=== PATIENT | male | born 1970 | race Caucasian/White ===

== ENCOUNTER 2016-09-08 10:07 | Inpatient (IN) | payer SELFPAY ==
--- NOTE | 2016-09-08 10:21 | EDPHY ---
H & P Time Seen by Provider: 09/08/16 10:17 HPI/ROS: CHIEF COMPLAINT: Chest tightness HISTORY OF PRESENT ILLNESS: This patient is a 26 year old male with history of familial hypercholesteremia who presents complaining of intermittent chest tightness beginning five days prior to arrival and worsening over time. His symptoms first presented as a pressure sensation beneath his armpits while walking to work. He reports episodic substernal chest pain since that time. Today, he awoke with substernal chest pressure mild in severity that has been waxing and waning since presentation. The pain is 4/10 now. He also complains of associated diaphoresis. Denies nausea, vomiting, lightheadedness, or dyspnea. Family history of coronary artery disease on father's side. Patient is an everyday smoker. REVIEW OF SYSTEMS: Constitutional: +diaphoresis, no fever, no chills Eyes: No visual changes ENT: No sore throat Respiratory: No cough, no shortness of breath Cardiac: +chest pain Gastrointestinal: No nausea, no vomiting, no abdominal pain Genitourinary: No hematuria, no dysuria Musculoskeletal: No leg pain or swelling Skin: No rash Neurological: No headache, no numbness, no weakness Psychiatric: anxiety Past Medical/Surgical History: Familial hypercholesteremia (unmedicated). No history of diabetes. Social History: Drinks alcohol daily. Smokes daily. 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 Smoking Status: Current every day smoker Physical Exam: General Appearance: Alert, no distress Eyes: Pupils equal and round, no conjunctival pallor or injection ENT, Mouth: Mucous membranes moist Neck: Normal inspection Respiratory: Lungs are clear to auscultation Cardiovascular: Tachycardic, no murmur Gastrointestinal: Abdomen is soft and non- tender Neurological: A&O, nonfocal, normal gait Skin: Warm and dry, no rash Extremities: Nontender, no pedal edema Psychiatric: Anxious affect Constitutional: Initial Vital Signs Temperature (C) 36.5 C 09/08/16 10:09 Heart Rate 81 09/08/16 10:09 Respiratory Rate 16 09/08/16 10:09 Blood Pressure 190/124 H 09/08/16 10:09 O2 Sat (%) 98 09/08/16 10:09 O2 Delivery Mode Nasal Cannula O2 (L/minute) 2 Allergies/Adverse Reactions: No Known Allergies Allergy (Unverified 12/09/12 23:43) Home Medications: Medication Instructions Recorded NK [No Known Home Meds] 09/08/16 Medical Decision Making - Diagnostics EKG Interpretation: The 12 lead EKG was interpreted by myself reveals: normal sinus rhythm, rate 72. ST segment elevation in V1-V5 consistent with acute anterior IA. Imaging: Imaging Impressions Chest X-Ray 09/08/16 10:22 Impression: 1. No active cardiopulmonary disease seen. 2. Moderate dextroscoliosis mid to lower thoracic spine. ED Course/Re-evaluation: 1018: EKG shows acute anterior STEMI. Cardiac alert called. 1019: Patient transitioned to trauma bay and placed on train station agent. IV established. Patient placed on O2 via nasal cannula. 1020: Dr. Galloway, interventional cardiology, at bedside. 1023: 324mg PO Aspirin administered. 1024: Chest x-ray obtained and reviewed by myself at bedside: normal mediastinum and no acute disease. 1025: Cath Team at bedside. 1026: 0.5mg IV Ativan administered for anxiety. Pt felt better after Ativan. 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 This pt remained stable throughout his brief ED stay. Pt's friend was informed of dx and course of action. This pt utilized 35 minutes of critical care time by me exclusive of unbundled procedures. Organ at risk: heart Differential Diagnosis: Differential diagnosis includes though it is not limited to pneumonia, pneumothorax, pulmonary embolism, aortic dissection, pericarditis, acute coronary syndrome. - Data Points Laboratory Results: Laboratory Results 09/08/16 10:23 09/08/16 10:23 09/08/16 09/08/16 10:23 10:23 WBC 8.07 10^3/uL 10^3/uL (3.80-9.50) RBC 5.46 10^6/uL 10^6/uL (4.40-6.38) Hgb 17.6 g/dL H g/dL (13.7-17.5) Hct 50.1 % % (40.0-51.0) MCV 91.8 fL fL (81.5-99.8) MCH 32.2 pg pg (27.9-34.1) MCHC 35.1 g/dL g/dL (32.4-36.7) RDW 12.5 % % (11.5-15.2) Plt Count 180 10^3/uL 10^3/uL (150-400) MPV 10.0 fL fL (8.7-11.7) Neut % (Auto) 73.4 % % (39.3-74.2) Lymph % (Auto) 15.7 % % (15.0-45.0) [place] % (Auto) 9.7 % % (4.5-13.0) Eos % (Auto) 0.4 % L % (0.6-7.6) Baso % (Auto) 0.6 % % (0.3-1.7) Nucleat RBC Rel Count 0.0 % % (0.0-0.2) Absolute Neuts (auto) 5.92 10^3/uL 10^3/uL (1.70-6.50) Absolute Lymphs (auto) 1.27 10^3/uL 10^3/uL (1.00-3.00) Absolute Monos (auto) 0.78 10^3/uL 10^3/uL (0.30-0.80) Absolute Eos (auto) 0.03 10^3/uL 10^3/uL (0.03-0.40) Absolute Basos (auto) 0.05 10^3/uL 10^3/uL (0.02-0.10) Absolute Nucleated RBC 0.00 10^3/uL 10^3/uL (0-0.01) Immature Gran % 0.2 % % (0.0-1.1) Immature Gran # 0.02 10^3/uL 10^3/uL (0.00-0.10) Sodium 135 mEq/L mEq/L (134-144) Potassium 4.3 mEq/L mEq/L (3.5-5.2) Chloride 98 mEq/L mEq/L (97-110) Carbon Dioxide 22 mEq/l mEq/l (22-31) Anion Gap 15 mEq/L mEq/L (8-16) BUN 17 mg/dL mg/dL (7-23) Creatinine 0.8 mg/dL mg/dL (0.7-1.3) Estimated GFR > 60 Glucose 123 mg/dL H mg/dL (70-100) Calcium 9.9 mg/dL mg/dL (8.5-10.4) Troponin I 0.446 ng/mL H ng/mL (0-0.034) NT-Pro-B Natriuret Pep 127 pg/mL H pg/mL (0-125) Medications Given: Discontinued Medications Aspirin (Aspirin) 324 mg PO EDNOW ONE Stop: 09/08/16 10:45 Last Admin: 09/08/16 10:25 Dose: 324 mg Aspirin Buffered (Aspirin Ec) 325 mg PO ONCE ONE Stop: 09/08/16 12:34 Last Admin: 09/08/16 12:57 Dose: Not Given Lorazepam (Ativan Injection) 1 mg IVP EDNOW ONE Stop: 09/08/16 10:45 Last Admin: 09/08/16 10:28 Dose: 1 mg Ticagrelor (Brilinta) 180 mg PO ONCE ONE Stop: 09/08/16 12:34 Last Admin: 09/08/16 12:57 Dose: Not Given Departure - Departure Disposition: To OP Cath/Surgery Clinical Impression: Acute coronary syndrome Condition: Critical
[2016-09-08] MEDS ORDERED: ASPIRIN 81 MG CHEWABLE TAB ONE (10:22)
[2016-09-08] MEDS ORDERED: fentaNYL 100 MCG/2 ML INJ ONE ×3 (10:23→10:53)
[2016-09-08] MEDS ORDERED: LIDOCAINE 1% 30 ML SDV ONE (10:23)
[2016-09-08] MEDS ORDERED: IOPAMIDOL (ISOVUE 370) 100 ML BTL IV ONE ×3 (10:24→11:33)
[2016-09-08] MEDS ORDERED: MIDAZOLAM 2 MG/2 ML VIAL ONE ×3 (10:24→10:53)
[2016-09-08] MEDS ORDERED: LORazepam 2 MG/ML INJ ONE (10:26)
--- NOTE | 2016-09-08 10:26 | CPEKG ---
Heart Rate: 72 RR Interval: 833 P-R Interval: 136 QRSD Interval: 82 QT Interval: 376 QTC Interval: 412 P [place]: 76 QRS [place]: 47 T Wave [place]: 55 EKG Severity - ABNORMAL ECG - EKG Impression: SINUS RHYTHM EKG Impression: PROBABLE LEFT ATRIAL ABNORMALITY EKG Impression: ANTERIOR INJURY, EARLY ACUTE INFARCT Electronically Signed By: Yeny Kapadia 08-Sep-2016 10:43:19
[2016-09-08] MEDS ORDERED: BIVALIRUDIN 250 MG/5 ML VIAL IV ONE ×2 (10:28→11:33)
[2016-09-08] MEDS ORDERED: NITROGLYCERIN 1,500 MCG/15 ML VIAL MISC ONE ×2 (10:29→10:44)
[2016-09-08] MEDS ORDERED: ONDANSETRON 4 MG/2 ML VIAL ONE (10:33)
[2016-09-08 10:37] LABS: % IMMATURE GRANULYOCYTES 0.2 % (0.0-1.1); ABSOLUTE IMMATURE GRANULOCYTES 0.02 10^3/uL (0.00-0.10); ADD DIFF? NO; ADD MORPH? NO; ADD SCAN? NO; ATYPICAL LYMPHOCYTE FLAG 0 (0-99); FRAGMENT RBC FLAG 0 (0-99); HEMATOCRIT 50.1 % (40.0-51.0); HEMOGLOBIN 17.6 g/dL (13.7-17.5); LEFT SHIFT FLG 0 (0-99); LIPEMIA HEMOLYSIS FLAG 90 (0-99); MEAN CELL HEMOGLOBIN 32.2 pg (27.9-34.1); MEAN CELL HEMOGLOBIN CONCENTR. 35.1 g/dL (32.4-36.7); MEAN CELL VOLUME 91.8 fL (81.5-99.8); PLATELET CLUMPS FLAG 0 (0-99); PLATELET COUNT 180 10^3/uL (150-400); RED BLOOD CELL COUNT 5.46 10^6/uL (4.40-6.38); RED CELL DISTRIBUTION WIDTH 12.5 % (11.5-15.2)
[2016-09-08] MEDS ORDERED: LORazepam 2 MG/ML INJ IVP ONE (10:44)
[2016-09-08] MEDS ORDERED: ASPIRIN 81 MG CHEWABLE TAB PO ONE (10:44)
[2016-09-08 10:52] LABS: CALCIUM 9.9 mg/dL (8.5-10.4); CARBON DIOXIDE 22 mEq/l (22-31); CHLORIDE 98 mEq/L (97-110); CREATININE 0.8 mg/dL (0.7-1.3); GLOMERULAR FILTRATION RATE > 60; GLUCOSE 123 mg/dL (70-100); SODIUM 135 mEq/L (134-144)
[2016-09-08 11:02] LABS: ANION GAP 15 mEq/L (8-16); POTASSIUM 4.3 mEq/L (3.5-5.2)
[2016-09-08 11:04] LABS: TROPONIN I 0.446 ng/mL (0-0.034)
[2016-09-08] MEDS ORDERED: TICAGRELOR 90 MG TAB PO ONE ×2 (12:02→12:33)
[2016-09-08] MEDS ORDERED: LORazepam 2 MG/ML INJ IVP PRN (12:33)
[2016-09-08] MEDS ORDERED: NITROGLYCERIN 0.4 MG BTL SL PRN (12:33)
[2016-09-08] MEDS ORDERED: HYDROCODONE/APAP 5/325 TAB PO PRN (12:33)
[2016-09-08] MEDS ORDERED: ATROPINE SULFATE 1 MG/10 ML SYR IVP PRN (12:33)
[2016-09-08] MEDS ORDERED: TEMAZEPAM 15 MG CAP PO PRN (12:33)
[2016-09-08] MEDS ORDERED: ONDANSETRON 4 MG/2 ML VIAL IVP PRN (12:33)
[2016-09-08] MEDS ORDERED: OXYCODONE/APAP 5/325 TAB PO PRN (12:33)
[2016-09-08] MEDS ORDERED: ASPIRIN EC 325 MG TAB PO ONE (12:33)
--- NOTE | 2016-09-08 12:43 | CPEKG ---
Heart Rate: 92 RR Interval: 652 QRSD Interval: 158 QT Interval: 436 QTC Interval: 540 QRS [place]: 129 T Wave [place]: 15 EKG Severity - ABNORMAL ECG - EKG Impression: ACCELERATED JUNCTIONAL RHYTHM EKG Impression: IVCD, CONSIDER ATYPICAL RBBB EKG Impression: EXTENSIVE ANTERIOR INFARCT, ACUTE EKG Impression: JUNCTIONAL RHYTHM IS NEW IN COMPARISON TO PRIOR Electronically Signed By: Tj Larry 08-Sep-2016 12:54:32
--- NOTE | 2016-09-08 13:13 | GCON ---
[f rep st] CONSULTATION DATE OF CONSULTATION: 09/08/2016 REFERRING PHYSICIAN: Yeny Kapadia MD CHIEF COMPLAINT: We have been asked by Dr. Kapadia to evaluate the patient with an acute anterior ST-s egment elevation myocardial infarction. HISTORY OF PRESENT ILLNESS: The patient is a 46-year-old gentleman with risk factors including fami lial hyperlipidemia and tobacco use, who presents with a chief complaint of chest pain. The patient was in his usual state of health until 4-5 days prior to admission, when he began to experience ceferino st pain. The chest pain was described as a pressure in the center of his chest extending into his a xilla. The chest discomfort was associated with diaphoresis but not nausea and vomiting. Initially , the chest discomfort was intermittent in nature and not severe. However, on the day of admission, patient woke up having severe chest discomfort that was not resolving. He presented to the emergen cy department for further evaluation. In the emergency department, he had an EKG performed demonstr ating diffuse anterior ST-segment elevation, as well as an elevated troponin of 0.446. We were cons ulted to help in the further management of this patient. The patient denies a previous history of coronary artery disease. He does have risk factors as note d above. PAST MEDICAL HISTORY: 1. Familial hyperlipidemia. 2. Daily alcohol use. 3. Daily tobacco use. MEDICATIONS: None. ALLERGIES: No known drug allergies. 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 He smokes daily an d drinks daily. FAMILY HISTORY: Notable for familial hyperlipidemia. REVIEW OF SYSTEMS: A full 10-point review of systems was not obtained given acute nature of illness . PHYSICAL EXAMINATION: GENERAL: Patient is resting in bed. He is in moderate distress, continuing to have symptoms of chest discomfort. VITALS: Afebrile. Pulse 81, blood pressure 190/124, respira tory rate 16, SaO2 98% on 2 L nasal cannula. HEENT: Normocephalic, atraumatic. Extraocular muscle s intact. NECK: No JVD. No bruits. LUNGS: Clear to auscultation bilaterally. CARDIOVASCULAR: Regular rate and rhythm, S1, S2. Positive S4. No murmurs auscultated. ABDOMEN: Soft, nontender. Normal active bowel sounds. No hepatosplenomegaly. Could not palpate aorta. EXTREMITIES: No clu bbing, cyanosis, or edema. There are 2+ posterior tibial pulses bilaterally. Dorsalis pedis pulses were reduced bilaterally. NEUROLOGIC: Patient awake, alert, and oriented x3. SKIN: No evidence of rashes. LABORATORY: White blood cell count is 8.07, hemoglobin 17.6, hematocrit 50.1, platelet count 180. Sodium 135, potassium 4.3, chloride 98, CO2 22, BUN 17, creatinine 0.8. IMAGING: EKG demonstrates sinus rhythm with anterior ST-segment elevation in leads V1 through V 5. ASSESSMENT AND PLAN: The patient is a 46-year-old gentleman with multiple cardiac risk factors who presents with an acute anterior ST-segment elevation myocardial infarction. He is continuing to hav e ongoing symptoms of chest pain at this time. Reviewed risks and benefits of cardiac catheterizati on with the patient for risk stratification and management. We will arrange to have this performed emergently. /[id number]/MODL
--- NOTE | 2016-09-08 15:13 | ECHO ---
[id number] + + [address] : : [place] [address] : : [phone] + + Adult Echocardiographic Report + -----+ :Name: ALINE MEDLEY MStudy Date: 09/08/2016 01:29 PM : : Hospital Admission Number: [id number] Location : 255: :: 1970 Gender: Male Height: 69.5 in : :Age: 46 yrs Race: WH Weight: 159 lb : :Reason For Study: Eval LV Fx : : BSA: 1.9 meters2 : :History: Post Cardiac Alert, Stents : + -----+ MMode/2D Measurements \T\ Calculations IVSd: 1.0 cm LVIDd: 4.6 cm FS: 21.9 % Ao root diam: LVPWd: 1.1 cm LVIDs: 3.6 cm EDV(Teich): 3.1 cm 95.9 ml ACS: 1.7 cm ESV(Teich): 53.4 ml EF(Teich): 44.3 % LVLd ap4: 7.4 cm SV(MOD-sp4): EDV(MOD-sp4): 46.0 ml 112.0 ml LVLs ap4: 7.1 cm ESV(MOD-sp4): 66.0 ml EF(MOD-sp4): 41.1 % Normal Measurement Values: + + :LVIDd (3.5-5.7cm) IVSd (0.6-1.1cm) LVPWd (0.6-1.1cm) Aortic Root (2.0-3.7cm)Left Atrium (1.5-4.0cm): :LV Vol(d) (76-115ml) LV Vol(s) (29-48ml) Ejec Fraction (50-65%)PV [place] (0.6- 1.2m/s) TV [place] (0.4-1.0m/s) : :MV E [place] (0.8-1.0m/s)MV A [place] (0.3-1.0m/s)LVOT [place] (0.7-1.2m/s) Asc Ao [place] ( 0.9-1.8m/s) : + + Doppler Measurements \T\ Calculations MV E max [place]: 48.4 cm/sec PA V2 max: 115.4 cm/sec MV A max [place]: 65.6 cm/sec PA max P.3 mmHg MV E/A: 0.74 Left Ventricle The left ventricle is normal in size. There is normal left ventricular wall thickness. Ejection Fraction = 40-45%. There is anterior and anteroseptal hypokinesis. Right Ventricle The right ventricle is normal in size and function. Atria The left atrial size is normal. Right atrial size is normal. Mitral Valve The mitral valve is normal in structure and function. There is no evidence of mitral valve prolapse. There is no mitral valve stenosis. There is no mitral regurgitation noted. Tricuspid Valve The tricuspid valve is normal in structure and function. No tricuspid regurgitation. Aortic Valve The aortic valve is normal in structure and function. There is no aortic stenosis. There is no aortic insufficiency. Pulmonic Valve The pulmonic valve is normal in structure and function. There is no pulmonic valvular regurgitation. Great Vessels The aortic root is normal size. Pericardium/Pleural There is no pericardial effusion. Conclusion A complete two-dimensional transthoracic echocardiogram was performed (2D, M-mode, Doppler and color flow Doppler). Ejection Fraction = 40-45%. There is anterior and anteroseptal hypokinesis The right ventricle is normal in size and function. The mitral valve is normal in structure and function. The tricuspid valve is normal in structure and function. The aortic valve is normal in structure and function. The aortic root is normal size. There is no pericardial effusion. No prior echo Final Reading Physician: Dr Ashley Eugene electronically signed on 09/08/2016 03:12 PM Ordering Physician: Tj Galloway Performed By: Mendez Abbott, JEANINECS
[2016-09-08] MEDS: CARVEDILOL 3.125 MG TAB PO SCH (16:07)
--- NOTE | 2016-09-08 16:15 | CPIP ---
[f rep st] INVASIVE CARDIAC PROCEDURE DATE OF PROCEDURE: 09/08/2016 PROCEDURES: 1. Coronary angiography. 2. Stenting of left anterior descending coronary artery and diagonal artery via culotte technique. INDICATION: Acute anterior ST-segment elevation myocardial infarction. ACCESS: Patient was prepped and draped in sterile fashion. 1% lidocaine was used to anesthetize the right inguinal region. A 6-Lebanese introducer sheath was placed in the right common femoral artery v ia modified Seldinger technique. The 6-Lebanese introducer sheath was later exchanged for 7-Lebanese int roducer sheath via exchange wire technique. CORONARY ANGIOGRAPHY: A 6-Lebanese JL4 was advanced to the left main coronary artery and images obtai sreedhar. The left main coronary artery trifurcated into an LAD, ramus, and circumflex coronary arteries. The left main coronary artery appeared normal. The left anterior descending coronary artery had a p roximal 99% stenosis involving the takeoff of the first diagonal artery with ALY 1 flow. The first diagonal artery had a proximal 80% stenosis with ALY 3 flow. The ramus coronary artery was a modera te to large size vessel. The ramus coronary artery appeared normal. The circumflex coronary artery w as nondominant. The circumflex coronary artery gave rise to 2 OM branches. The circumflex coronary a rtery had mild diffuse disease throughout. There was no stenosis greater than 10%. 6-Lebanese JR4 was advanced to the right coronary artery and images obtained. The right coronary artery is dominant. Th e right coronary artery had a distal 20% stenosis present. LEFT VENTRICULOGRAPHY: Left ventriculography was not performed in an effort to spare contrast. PERCUTANEOUS CORONARY INTERVENTION OF THE LEFT ANTERIOR DESCENDING CORONARY ARTERY: A 7-Lebanese EBU 3.5 was advanced to the left main coronary artery and images obtained. Angiography confirmed the pre sence of high-grade disease involving the proximal left anterior descending coronary artery. A Luge wire was placed in the distal vessel and position verified by angiography. A 2.5 x 15 Emerge balloon was used to pre-dilate the lesion. Followup angiography demonstrated a significant residual stenosi s; however, there was confucianist of ALY 3 flow. A 3.0 x 24 Synergy drug-eluting stent was then qasim dao across the lesion and deployed. Followup angiography demonstrated ALY 3 flow, no residual steno sis. The Luge wire was withdrawn from the left anterior descending coronary artery and placed in the diag onal artery. An attempt was made at passing a 1.5 x 15 Emerge balloon into the diagonal artery. This was unsuccessful. A [place] wire was then placed in the left anterior descending coronary artery and a 3.5 x 15 noncompliant balloon was used to post-dilate the proximal portion of the stent. Followup angiography demonstrated ALY 3 flow, no residual stenosis. An attempt was made at placing a 1.5 x 12 Emerge balloon into the first diagonal artery. This was unsuccessful. A 1.25 x 6 Sprinter balloon was then placed in the first diagonal artery and deployed. This was followed by a 1.5 x 10 Sprinter balloon which was also deployed. Followup angiography demonstrated significant residual stenosis wi th ALY 3 flow in the diagonal artery. A 2.0 x 20 Emerge balloon was then placed in the left anterio r descending coronary artery and into the proximal portion of the diagonal artery and deployed. Foll owup angiography demonstrated significant residual stenosis of the diagonal artery with ALY 3 flow. It was decided to switch to a bifurcation stenting technique. A 2.5 x 20 Synergy drug-eluting stent was placed in the proximal portion of the left anterior descending coronary artery and extended int o the first diagonal artery and deployed. Followup angiography demonstrated ALY 3 flow, no residual stenosis. The proximal portion of the stent that was extending from the left anterior descending co ronary artery into the diagonal artery was post dilated with a 3.5 x 8 Emerge balloon. Here again, f ollowup angiography demonstrated ALY 3 flow, no residual stenosis. The Luge wire was withdrawn from the diagonal artery and advanced into the left anterior descending coronary artery. It would not successfully cross into the left anterior descending coronary artery. It was, therefore, exchanged for a [place] wire. The [place] wire was placed in the left anterior desc ending coronary artery and position verified by angiography. A 1.5 x 15 Emerge balloon was used to o pen the side struts of the previously placed stent. A Luge wire was then placed in the diagonal tonya ry in preparation for kissing balloon technique. A 2.5 x 15 Emerge balloon was placed in the left an terior descending coronary artery into the diagonal artery. A 3.5 x 20 Emerge balloon was placed in the left anterior descending coronary artery. The balloons were simultaneously inflated via kissing technique. Followup angiography demonstrated ALY 3 flow, no residual stenosis. COMPLICATIONS: None. CONCLUSIONS: 1. Single-vessel coronary artery disease involving the left anterior descending coronary artery. 2. Status post culotte stenting technique of the left anterior descending coronary artery and first diagonal artery. /[id number]/MODL
[2016-09-08] MEDS ORDERED: LORazepam 1 MG TAB PO PRN (16:38)
[2016-09-08 19:26] LABS: CK-MB INTERPRETATION POSITIVE (NEGATIVE)
[2016-09-08] MEDS ORDERED: ACETAMINOPHEN 325 MG TAB PO PRN (22:00)
[2016-09-08] MEDS: TICAGRELOR 90 MG TAB PO SCH (23:23)
[2016-09-09 05:32] LABS: % IMMATURE GRANULYOCYTES 0.3 % (0.0-1.1); ABSOLUTE IMMATURE GRANULOCYTES 0.02 10^3/uL (0.00-0.10); ADD DIFF? NO; ADD MORPH? NO; ADD SCAN? NO; ATYPICAL LYMPHOCYTE FLAG 10 (0-99); FRAGMENT RBC FLAG 0 (0-99); HEMOGLOBIN 17.1 g/dL (13.7-17.5); LEFT SHIFT FLG 0 (0-99); LIPEMIA HEMOLYSIS FLAG 90 (0-99); MEAN CELL HEMOGLOBIN 32.8 pg (27.9-34.1); MEAN CELL HEMOGLOBIN CONCENTR. 35.6 g/dL (32.4-36.7); MEAN PLATELET VOLUME 10.4 fL (8.7-11.7); PLATELET CLUMPS FLAG 0 (0-99); PLATELET COUNT 155 10^3/uL (150-400); RED BLOOD CELL COUNT 5.22 10^6/uL (4.40-6.38); RED CELL DISTRIBUTION WIDTH 12.2 % (11.5-15.2)
[2016-09-09 05:48] LABS: ALANINE AMINOTRANSFERASE 92 IU/L (21-72); ALBUMIN 3.7 g/dL (3.5-5.0); ALKALINE PHOSPHATASE 71 IU/L (38-126); ANION GAP 6 mEq/L (8-16); ASPARTATE AMINOTRANSFERASE 366 IU/L (17-59); BILIRUBIN-CONJUGATED 0.4 mg/dL (0.0-0.5); BILIRUBIN-UNCONJUGATED 0.6 mg/dL (0.0-1.1); CALCIUM 8.5 mg/dL (8.5-10.4); CARBON DIOXIDE 23 mEq/l (22-31); CHLORIDE 108 mEq/L (97-110); CHOLESTEROL 244 mg/dL (140-200); CHOLESTEROL/HDL RATIO 3.87 RATIO (1.00-4.97); CREATININE 0.6 mg/dL (0.7-1.3); GLOMERULAR FILTRATION RATE > 60; GLUCOSE 101 mg/dL (70-100); HIGH DENSITY LIPOPROTEIN 63 mg/dL (40-65); LDL/HDL RATIO 2.62 RATIO (1.00-3.64); LOW DENSITY LIPOPROTEIN 165 mg/dL (70-100); NON-HIGH DENSITY LIPOPROTEIN 181 mg/dL (90-129); POTASSIUM 4.3 mEq/L (3.5-5.2); SODIUM 137 mEq/L (134-144); TOTAL PROTEIN 6.5 g/dL (6.3-8.2); TRIGLYCERIDE 82 mg/dL (40-150); VERY LOW DENSITY LIPOPROTEINS 16 mg/dL (8-25)
[2016-09-09 06:16] LABS: CK-MB INTERPRETATION POSITIVE (NEGATIVE)
[2016-09-09] MEDS: CARVEDILOL 3.125 MG TAB PO SCH ×2 (08:13→17:58)
[2016-09-09] MEDS: TICAGRELOR 90 MG TAB PO SCH ×2 (08:14→19:51)
[2016-09-09] MEDS: ASPIRIN EC 81 MG TAB PO SCH (08:14)
[2016-09-09] MEDS: ATORVASTATIN CALCIUM 40 MG TAB PO SCH (08:14)
--- NOTE | 2016-09-09 08:51 | CPEKG ---
Heart Rate: 70 RR Interval: 857 P-R Interval: 136 QRSD Interval: 70 QT Interval: 436 QTC Interval: 471 P [place]: 76 QRS [place]: 67 T Wave [place]: 76 EKG Severity - ABNORMAL ECG - EKG Impression: SINUS RHYTHM EKG Impression: MULTIPLE VENTRICULAR PREMATURE COMPLEXES EKG Impression: ANTERIOR INFARCT, RECENT EKG Impression: SINUS RHYTHM HAS REPLACED JUNCTIONAL RHYTHM NOTED ON PRIOR ECG Electronically Signed By: Tj Larry 09-Sep-2016 12:24:17
[2016-09-09] MEDS: LISINOPRIL 5 MG TAB PO SCH (15:06)
--- NOTE | 2016-09-09 18:10 | SOAPPROG ---
JENNIFER Progress Note Assessment/Plan: 1. Anterior STEMI - Pt presented with an anterior STEMI. He was treated with PCI of LAD and diagonal arteries. Peak CPK 2937. LVEF = 40 to 45%. No recurrent angina, CHF, or significant arrhythmias on telemetry monitoring. --> Continue asa, brilinta, coreg, and lipitor. --> Will add lisinopril today 2. Hyperlipidemia - LDL is 165 c/w his history of familial hyperlipidemia. --> lipitor 40 mg started on 09/08 --> Repeat FLP and LFTs in 3 months. --> Consider PCSK9 3. HTN - BP is well controlled. Will start lisinopril given reduced LVEF. Subjective: No chest pain No orthopnea or PND OK with medications limited ambulation No groin pain. Objective: Vital Signs Temp Pulse Resp BP Pulse Ox 36.5 C 73 18 122/82 H 98 09/09/16 08:00 09/09/16 17:58 09/09/16 16:00 09/09/16 17:58 09/09/16 16:00 Laboratory Results 09/09/16 05:20 09/09/16 05:20 09/08/16 09/09/16 09/10/16 05:59 05:59 05:59 Intake Total 1390 1500 Output Total 2400 1500 Balance -1010 0 Physical Exam - Physical Exam General Appearance: alert, no apparent distress Respiratory: lungs clear Cardiac/Chest: regular rate, rhythm Abdomen: normal bowel sounds, non-tender, soft Skin: normal color Extremities: other (No hematoma or echymosis.), No pedal edema ICD10 Worksheet Patient Problems: Problems Problem Status Onset Acute coronary syndrome Acute
[2016-09-10 08:31] VITALS: BP 127/81; PULSE 73; RESP 18; TEMP 98.1; O2SAT 98
[2016-09-10] MEDS: CARVEDILOL 3.125 MG TAB PO SCH (09:01)
[2016-09-10] MEDS: ATORVASTATIN CALCIUM 40 MG TAB PO SCH (09:40)
[2016-09-10] MEDS: ASPIRIN EC 81 MG TAB PO SCH (09:40)
[2016-09-10] MEDS: TICAGRELOR 90 MG TAB PO SCH (09:41)
[2016-09-10] MEDS: LISINOPRIL 5 MG TAB PO SCH (09:41)
--- NOTE | 2016-09-10 10:13 | ECHO ---
[id number] [id number] + + [address] : : [place] [address] : : [phone] + + Adult Echocardiographic Report + -----+ :Name: ALINE MEDLEY MStudy Date: 09/10/2016 07:47 AM : : Hospital Admission Number: [id number] Location : 255: :: 1970 Gender: Male Height: 70 in : :Age: 46 yrs Race: WH Weight: 160 lb : :Reason For Study: Eval LVEF : : BSA: 1.9 meters2 : + -----+ MMode/2D Measurements \T\ Calculations LVLd ap4: 7.7 cm SV(MOD-sp4): 29.0 ml EDV(MOD-sp4): 72.0 ml LVLs ap4: 7.0 cm ESV(MOD-sp4): 43.0 ml EF(MOD-sp4): 40.3 % Normal Measurement Values: + + :LVIDd (3.5-5.7cm) IVSd (0.6-1.1cm) LVPWd (0.6-1.1cm) Aortic Root (2.0-3.7cm)Left Atrium (1.5-4.0cm): :LV Vol(d) (76-115ml) LV Vol(s) (29-48ml) Ejec Fraction (50-65%)PV [place] (0.6- 1.2m/s) TV [place] (0.4-1.0m/s) : :MV E [place] (0.8-1.0m/s)MV A [place] (0.3-1.0m/s)LVOT [place] (0.7-1.2m/s) Asc Ao [place] ( 0.9-1.8m/s) : + + Left Ventricle Ejection Fraction = 40-45%. Mild to distal anterior and anteroseptal hypokinesis. Conclusion Limited 2-D echo. Slight improvement in anterior and anteroseptal wall function compared with 09/08/2016. Ejection Fraction = 40-45%. Mild to distal anterior and anteroseptal hypokinesis Final Reading Physician: Dr Ashley Eugene electronically signed on 09/10/2016 10:12 AM Ordering Physician: Tj Galloway Performed By: Blanca Cartwright RDCS
--- NOTE | 2016-09-10 11:40 | GDS ---
[f rep st] DISCHARGE SUMMARY DISCHARGE DIAGNOSES: 1. Anterior ST-segment elevation myocardial infarction. The patient presented with an acute anteri or ST-segment elevation myocardial infarction. He was treated with percutaneous coronary interventi on of his left anterior descending coronary artery and 1st diagonal artery using Synergy drug-elutin g stents in a culotte technique. His peak CPK post myocardial infarction was 2937, left ventricular systolic function post myocardial infarction was 40-45%. While in the hospital patient denied symp toms of angina, congestive heart failure and did not have any significant arrhythmias on telemetry m onitoring. He will be continued on aspirin, Brilinta, Coreg, lisinopril and Lipitor for secondary p revention. 2. Hyperlipidemia. The patient has a history of familial hyperlipidemia. He had not been on stati n therapy. His LDL on admission was 165. The patient was started on Lipitor 40 mg daily. He will need FLP and LFTs in 3 month period of time. Consideration for PCSK9 inhibitor will be ascertained a t that time. 3. Tobacco use. Patient was instructed on smoking cessation. 4. Hypertension. Blood pressure was well controlled during the hospitalization. SUMMARY OF PRESENTATION AND COURSE: The patient is a 46-year-old gentleman with risk factors includ ing familial hyperlipidemia and tobacco use who presented on 09/09/2015 with an [address]-se gment elevation myocardial infarction. He was taken to the cardiac catheterization laboratory where he was treated with percutaneous coronary intervention of his left anterior descending coronary art nevaeh and 1st diagonal artery. The patient's peak CPK following intervention was 2937, left ventricul ar systolic function was approximately 40-45% by echocardiography. While in the hospital patient de nied recurrent anginal symptoms, congestive heart failure and did not have significant arrhythmias o n telemetry monitoring. At the time of discharge, patient was ambulating without difficulty and den ied groin complications. PHYSICAL EXAMINATION: At the time of discharge. VITALS: Temperature is afebrile. Pulse is 73, bl ood pressure 127/81, respiratory rate 18, SaO2 98% on room air. LUNGS: Clear to auscultation bilat erally. CARDIOVASCULAR: Regular rate and rhythm. S1, S2. No murmurs, rubs, or gallops appreciate d. ABDOMEN: Soft, nontender. Normoactive bowel sounds. EXTREMITIES: No hematoma or ecchymosis. 2+ posterior tibial pulse. No edema. No rashes. NEUROLOGIC: Awake, alert, and oriented x3. LABORATORY: Sodium 137, potassium 4.3, chloride 108, CO2 23, BUN 11, creatinine 0.6. White blood c ell count 7.40, hemoglobin 17.1, hematocrit 48.0, platelet count 155. DISCHARGE MEDICATIONS: Please see medicine reconciliation form. DISCHARGE INSTRUCTIONS: 1. Patient should follow up with Adelaida Escobar or Dr. Galloway at [facility] in approximately 1-2 week period of time for postprocedural groin check and initiation of cardiac rehab. 2. Patient should return to the ER for recurrent anginal symptoms. 3. Patient was instructed on groin complications and will return to the ER for complications as out lined at the time of discharge. More than 50% of this 45 minute visit was spent counseling the patient and his mother regarding his acute event, prognosis and appropriate treatment strategies. /[id number]/MODL
== END 2016-09-10 11:50 | disposition home or self-care (01) | DRG 247 ==
LOC: FCATH 10:41 → F2N 13:20
PROVIDERS: ADMIT Internal Medicine Cardiovascular Disease; ATTEND Internal Medicine Cardiovascular Disease
PROC: 4A023N7 Measurement of Cardiac Sampling and Pressure, Left Heart, Percutaneous Approach (ICD-10-PCS; principal; 2016-09-08)
PROC: B2111ZZ Fluoroscopy of Multiple Coronary Arteries using Low Osmolar Contrast (ICD-10-PCS; principal; 2016-09-08)
PROC: 027135Z Dilation of Coronary Artery, Two Arteries with Two Drug-eluting Intraluminal Devices, Percutaneous Approach (ICD-10-PCS; principal; 2016-09-08)
PROC: B2151ZZ Fluoroscopy of Left Heart using Low Osmolar Contrast (ICD-10-PCS; principal; 2016-09-08)
DX: I21.09 ST elevation (STEMI) myocardial infarction involving other coronary artery of anterior wall (principal); I25.10 Atherosclerotic heart disease of native coronary artery without angina pectoris; E78.01 Familial hypercholesterolemia; I10 Essential (primary) hypertension; F17.210 Nicotine dependence, cigarettes, uncomplicated
CPT/HCPCS: 96374; C1725; C1760; C1769; C1874; C1887; C9606; J0583; J1200; J1644; J2060; J2250; J2405; J3010; Q9967